=== PATIENT | male | born 1985 | race Caucasian/White ===

== ENCOUNTER 2018-10-10 09:38 | Emergency (ER) | payer OTHER ==
[2018-10-10] MEDS: ONDANSETRON (ODT) 4 MG TAB ODT (10:28)
[2018-10-10] MEDS: HYDROCODONE/APAP (5/325) TAB PO (10:28)
== END 2018-10-10 11:38 | disposition home or self-care (01) ==
LOC: FTE 09:38
DX: S30.810A Abrasion of lower back and pelvis, initial encounter (principal); R51 Headache; V49.40XA Driver injured in collision with unspecified motor vehicles in traffic accident, initial encounter
CPT/HCPCS: 70450; 72100; 99284-25